=== PATIENT | female | born 1965 | race Caucasian/White ===

== ENCOUNTER 2018-12-28 19:56 | Emergency (ER) | payer SELFPAY ==
--- NOTE | 2018-12-28 20:25 | EDM.PDOC ---
ED HPI GENERAL MEDICAL PROBLEM - General Chief Complaint: ENT Problem Stated Complaint: CHEST PAIN SORE THROAT Time Seen by Provider: 12/28/18 20:05 Source of Information: Reports: Patient, RN Notes Reviewed History Limitations: Reports: No Limitations - History of Present Illness INITIAL COMMENTS - FREE TEXT/NARRATIVE: Patient is a 53-year-old female who presents to the ED for the evaluation of a sore throat and chest pain. The patient has complained of a sore throat, past couple days, she states that her grandchildren do sit on her drinks, and they have been sick. On the way here she states that she's also started developing some chest pain. She does not state that the chest pain radiates anywhere. She complains that the chest pain is intermittent episodes where her heart feels as if it's fluttering with twinges and chest pressure. The patient has a history of high blood pressure, she was treated for this at one point in time however she lost weight and did not need be treated for hypertension any longer. The patient denies any fevers or chills or other feelings of being unwell. She states that she has not had much of an appetite due to her sore throat, she states it hurts to swallow. She states that she has been under a lot of stress lately, as her just recently on 12/27/18. Throat Pain Score (Numeric/FACES): 7 - Related Data Allergies Allergy/AdvReac Type Severity Reaction Status Date / Time No Known Allergies Allergy Verified 12/28/18 20:04 Home Meds: Home Meds LORazepam [Ativan] 0.5 mg PO TID PRN #21 tablet 12/28/18 [Rx] Lisinopril/Hydrochlorothiazide [Lisinopril-Hctz 10-12.5 mg Tab] 1 tab PO DAILY # 30 tablet 12/28/18 [Rx] Past Medical History Cardiovascular History: Reports: Hypertension - Past Surgical History Female Surgical History: Reports: Section Social & Family History - Tobacco Use Smoking Status *Q: Current Some Day Smoker Years of Tobacco use: 30 Packs/Tins Daily: 0.1 - Caffeine Use Caffeine Use: Reports: Coffee, Soda, Tea - Recreational Drug Use Recreational Drug Use: No ED ROS ENT - Review of Systems Review Of Systems: See Below Constitutional: Reports: No Symptoms HEENT: Reports: Ear Pain (Left), Throat Pain. Denies: Sinus Problem Respiratory: Denies: Shortness of Breath, Wheezing, Cough Cardiovascular: Reports: Chest Pain (chest pressure). Denies: Edema, Lightheadedness Endocrine: Reports: No Symptoms GI/Abdominal: Reports: No Symptoms : Reports: No Symptoms Musculoskeletal: Reports: No Symptoms Skin: Reports: No Symptoms Neurological: Reports: No Symptoms Psychiatric: Reports: Anxiety Hematologic/Lymphatic: Reports: No Symptoms Immunologic: Reports: No Symptoms ED EXAM, ENT - Physical Exam Exam: See Below Exam Limited By: No Limitations General Appearance: Alert, WD/WN, Mild Distress (pt appears visibly upest at initial presentation.) Eye Exam: Bilateral Eye: EOMI, Normal Inspection, PERRL Ears: Normal External Exam, Normal Canal, Hearing Grossly Normal, Normal TMs ( serous fluid behind the R TM) Nose: Normal Inspection Mouth/Throat: Normal Inspection, Normal Gums, Normal Lips, Normal Teeth, Pharyngeal Erythema (bilateral), Tonsillar Erythema, Tonsillar Swelling. No: Drooling, Tonsillar Exudates, Trismus Head: Atraumatic, Normocephalic Neck: Normal Inspection, Supple, Non-Tender, Full Range of Motion Respiratory/Chest: No Respiratory Distress, Lungs Clear, Normal Breath Sounds, No Accessory Muscle Use, Chest Non-Tender Cardiovascular: Normal Peripheral Pulses, Regular Rate, Rhythm, No Murmur GI/Abdominal: Normal Bowel Sounds, Soft, Non-Tender, No Distention, No Mass Extremities: Normal Inspection, Normal Capillary Refill Neurological: Alert, Oriented, Normal Cognition, No Motor/Sensory Deficits Psychiatric: Normal Affect, Normal Mood, Tearful (patient is visibly upset, and somewhat distraught over 's recent passing.) Skin: Warm, Dry, Intact, Normal Color, No Rash EKG INTERPRETATION EKG Date: 12/28/18 Time: 20:29 Rhythm: NSR Rate (Beats/Min): 87 Harrells: Normal P-Wave: Present QRS: Normal ST-T: Normal QT: Normal EKG Interpretation Comments: Reviewed with Dr. Madrigal Course - Vital Signs Last Recorded V/S: Last Vital Signs Temp 99.6 F 12/28/18 20:02 Pulse 96 12/28/18 20:02 Resp 18 12/28/18 20:02 BP 217/112 H 12/28/18 20:02 Pulse Ox 97 12/28/18 20:02 - Orders/Labs/Meds Orders: Active Orders 24 hr Category Date Time Status EKG Documentation Completion [RC] STAT Care 12/28/18 20:06 Ordered Chest 1V Frontal [CR] Stat Exams 12/28/18 20:06 Ordered Labs: Laboratory Tests 12/28/18 12/28/18 12/28/18 Range/Units 20:29 20:29 20:29 WBC 13.43 H (3.98-10.04) K/mm3 RBC 4.86 (3.98-5.22) M/mm3 Hgb 13.8 (11.2-15.7) gm/L Hct 40.9 (34.1-44.9) % MCV 84.2 (79.4-94.8) fl MCH 28.4 (25.6-32.2) pg MCHC 33.7 (32.2-35.5) g/dl RDW Std Deviation 43.4 (36.4-46.3) fL Plt Count 273 (182-369) K/mm3 MPV 9.4 (9.4-12.3) fl Neutrophils % (Manual) 62 H (40-60) % Band Neutrophils % 0 (0-10) % Lymphocytes % (Manual) 27 (20-40) % Atypical Lymphs % 0 % Monocytes % (Manual) 8 (2-10) % Eosinophils % (Manual) 3 (0.7-5.8) % Basophils % (Manual) 0 L (0.1-1.2) Toxic Granulation Moderate Platelet Estimate Adequate Plt Morphology Comment Normal RBC Morph Comment Normal Sodium 140 (136-145) mEq/L Potassium 3.3 L (3.5-5.1) mEq/L Chloride 103 (98-107) mEq/L Carbon Dioxide 27 (21-32) mEq/L Anion Gap 13.3 (5-15) BUN 13 (7-18) mg/dL Creatinine 1.0 (0.55-1.02) mg/dL Est Cr Clr Drug Dosing 61.10 mL/min Estimated GFR (MDRD) 58 (>60) mL/min BUN/Creatinine Ratio 13.0 L (14-18) Glucose 107 H (74-106) mg/dL Calcium 9.1 (8.5-10.1) mg/dL Magnesium 2.0 (1.8-2.4) mg/dl Total Bilirubin 0.6 (0.2-1.0) mg/dL AST 13 L (15-37) U/L ALT 21 (14-59) U/L Alkaline Phosphatase 90 (46-116) U/L Troponin I < 0.017 (0.00-0.056) ng/mL NT-Pro-B Natriuret Pep 310 H (0-125) pg/mL Total Protein 7.7 (6.4-8.2) g/dl Albumin 3.9 (3.4-5.0) g/dl Globulin 3.8 gm/dL Albumin/Globulin Ratio 1.0 (1-2) Meds: Medications Discontinued Medications Generic Name Dose Route Start Last Admin Trade Name Freq PRN Reason Stop Dose Admin Lisinopril 10 mg 12/28/18 21:30 Prinivil PO 12/28/18 21:31 ONETIME ONE Lorazepam 0.5 mg 12/28/18 21:31 Ativan PO 12/28/18 21:32 ONETIME ONE Penicillin G Benzathine 1.2 millunits 12/28/18 21:31 Bicillin L-A IM 12/28/18 21:32 ONETIME ONE - Re-Assessments/Exams Free Text/Narrative Re-Assessment/Exam: 12/28/18 20:36 Patient presents to the ED for evaluation of sore throat and chest pain. I have ordered a strep screen, EKG, chest x-ray, troponin, CBC, CMP, magnesium and BNP for initial evaluation. I believe that she is suffering from acute anxiety and this might be causing her chest pain. 12/28/18 21:31 Patient's labs have returned, she is positive for strep at this time. She has opted for the penicillin injection. Her blood pressure is still mildly elevated at 170-190 systolically. I will start her on lisinopril at this time, she has taken lisinopril/HCTZ in the past, with good results. Will send prescription for this. Have also ordered 0.5 mg Ativan to help calm her nerves from anxiety. Will send a few tablets of this as well. The patient was advised that she should establish care with a primary care provider to continue her blood pressure medications and intake anxiety medications provided. 12/28/18 21:36 Of note patient's cardiac labs and other general labs are essentially within normal limits. There is no sign of any bacterial infection other then the strep throat. She is not having a heart attack at this ED visit. Departure - Departure Time of Disposition: 21:37 Disposition: Home, Self-Care 01 Condition: Fair Clinical Impression: Anxiety, Strep throat High blood pressure Qualifiers: Hypertension type: unspecified Qualified Code(s): I10 - Essential (primary) hypertension - Discharge Information *PRESCRIPTION DRUG MONITORING PROGRAM REVIEWED*: No *COPY OF PRESCRIPTION DRUG MONITORING REPORT IN PATIENT SURAJ: No Prescriptions: Lisinopril/Hydrochlorothiazide [Lisinopril-Hctz 10-12.5 mg Tab] 1 tab PO DAILY # 30 tablet LORazepam [Ativan] 0.5 mg PO TID PRN #21 tablet PRN Reason: Anxiety Instructions: Generalized Anxiety Disorder, Adult, Strep Throat, [id number], Hypertension, [id number], DASH Eating Plan Referrals: PCP,None [Primary Care Provider] - Forms: ED Department Discharge Additional Instructions: You have been evaluated in the ED today for your sore throat and chest pain. You did test positive for strep throat at this time, you have been treated with an IM injection of penicillin. You should need no further treatment for your strep throat. Your cardiac workup was within normal limits, you're not suffering from a heart attack at this ED visit. Your chest pain was most likely due to increased stress and anxiety due to your 's recent passing. You have been provided with prescription for Ativan, 0.5 mg, please take one tablet 3 times daily as needed for feelings of increased stress or anxiety. You have also been started on a prescription for blood pressure, please take one tab daily, and keep a blood pressure journal to make sure that your blood pressure is decreasing appropriately. You may need to have the dosage adjusted by your primary care provider. Please follow up with a family practice provider so that they can follow your blood pressure and manage your medications. Please return to the ED if your symptoms should change or worsen. - My Orders Last 24 Hours: My Active Orders 12/28/18 20:06 EKG Documentation Completion [RC] STAT Chest 1V Frontal [CR] Stat - Assessment/Plan Last 24 Hours: My Active Orders 12/28/18 20:06 EKG Documentation Completion [RC] STAT Chest 1V Frontal [CR] Stat
[2018-12-28] MEDS ORDERED: Lisinopril 10 MG Tab PO ONE (21:30)
[2018-12-28] MEDS ORDERED: LORazepam 0.5 MG Tab PO ONE (21:31)
[2018-12-28] MEDS ORDERED: Penicillin G Benzathine 1,200,000 Units/2 ML Syringe IM ONE (21:31)
--- NOTE | 2018-12-30 10:42 | CR ---
Chest: Portable view of the chest was obtained. Comparison: No previous chest x-ray. Heart size is normal. Tortuous thoracic aorta is seen. Lungs are clear. Bony structures are unremarkable. Impression: 1. Nothing acute is seen on portable chest x-ray. Diagnostic code #1
== END 2018-12-28 21:57 | disposition home or self-care (01) ==
LOC: JD.ED 19:56
DX: J02.0 Streptococcal pharyngitis (principal); I10 Essential (primary) hypertension; F41.9 Anxiety disorder, unspecified; F17.210 Nicotine dependence, cigarettes, uncomplicated
CPT/HCPCS: 36415; 71045; 80053; 83735; 83880; 84484; 85007; 85027; 87430; 93005; 96372; 99283; A9270; J0561; 93010; 99284